=== PATIENT | female | born 1960 | race Caucasian/White ===

== ENCOUNTER 2018-12-20 11:58 | Day surgery (SDC) | payer OTHER ==
[2018-12-20] MEDS ORDERED: Xylocaine 1% Vial 30 ML PF IJ ONE (11:59)
[2018-12-20] MEDS ORDERED: Ketamine HCl 50 MG/ML IJ ONE (11:59)
[2018-12-20] MEDS ORDERED: DIPRIVAN 200 MG/20 ML IV ONE (11:59)
[2018-12-20] MEDS ORDERED: Depo-Medrol 40 MG/ML IM ONE (11:59)
[2018-12-20] MEDS ORDERED: Marcaine 0.5% SDV 10 ML IJ ONE (11:59)
[2018-12-20] MEDS ORDERED: Lactated Ringers 1,000 ML IV ONE (13:04)
--- NOTE | 2018-12-20 13:57 | XRAY ---
12 seconds fluoroscopy time in surgery for right hip injection.
--- NOTE | 2018-12-20 13:59 | XRAY ---
Indication: Right SI joint injection. Intraoperative fluoroscopy was provided for 9 seconds. 2 digital spot images submitted for interpretation demonstrates posterior needle tip projecting over the inferior right SI joint. Correlate with intraoperative findings/report.
--- NOTE | 2018-12-20 13:59 | XRAY ---
Indication: Right hip injection done in prone position. Intraoperative fluoroscopy was provided for 12 seconds. Single digital spot image submitted for interpretation demonstrates needle tip projecting just lateral to the femur neck. Small amount of contrast injected for needle tip placement. Correlate with intraoperative findings/report.
--- NOTE | 2018-12-20 14:06 | XRAY ---
9 seconds fluoroscopy time in surgery for right SI joint injection.
== END 2018-12-20 13:37 | disposition home or self-care (01) ==
LOC: SDC-PAIN 11:58
PROVIDERS: ATTEND Psychiatry & Neurology Pain Medicine
DX: M79.10 Myalgia, unspecified site (principal); M16.11 Unilateral primary osteoarthritis, right hip; Z79.899 Other long term (current) drug therapy; E78.5 Hyperlipidemia, unspecified
CPT/HCPCS: 72020; 73501; 77002; J1030; J2001; J2704